=== PATIENT | male | born 2000 | race Caucasian/White ===

== ENCOUNTER 2023-09-30 08:45 | Emergency (ER) | payer SELFPAY ==
--- OUTSIDE RECORDS SUMMARY | 2023-09-30 08:48 | XMS REPORT | Continuity of Care Document ---
:2000 Author Organization [facility] Address [address] [place] [address] Care Team Providers Name Role Phone Asked, No Pcp Primary Care Physician Unavailable Jose MARQUEZ, Lorenzo Jung Attending Clinician Payers Payer Name Policy Type Policy Number Effective Date Expiration Date S ource Problems This patient has no known problems. Allergies, Adverse Reactions, Alerts This patient has no known allergies or adverse reactions. Social History Social Habit Start Date Stop Date Quantity Comments Source Sexual orientation [facility] History of Social 2022-11-03 2022-11-03 [facility] function 00:00:00 00:00:00 Sex Assigned At [address] [facility] 00:00:00 00:00:00 Smoking Status Start Date Stop Date Source Tobacco smoking consumption unknown [facility] Medications This patient has no known medications. Vital Signs Vital Name Observation Time Observation Value Comments Source Systolic blood 2022-11-03 16:53:02 138 mm[Hg] [facility] pressure Diastolic blood 2022-11-03 16:53:02 82 mm[Hg] [facility] pressure Heart rate 2022-11-03 16:53:02 72 /min [facility] Body temperature 2022-11-03 16:53:02 36.56 Nyla [facility] Respiratory rate 2022-11-03 16:53:02 18 /min [facility] Oxygen saturation in 2022-11-03 16:53:02 99 /min [facility] Arterial blood by Pulse oximetry Body height 2022-11-03 16:53:00 182.9 cm [facility] Body weight 2022-11-03 16:53:00 88.451 kg [facility] BMI 2022-11-03 16:53:00 26.45 kg/m2 [facility] Procedures Procedure Date / Time Performed Performing Clinician [facility] e GROUP A STREP, RAPID 2022-11-03 17:05:00 [facility] ANTIGEN INFLUENZA ANTIGEN 2022-11-03 17:05:00 [facility] RESPIRATORY PATHOGEN 2022-11-03 17:05:00 [facility] PANEL WITH COVID-19 RT-PCR STREP SCREEN CULTURE 2022-11-03 17:05:00 [facility] Encounters Start End Encounter Admission Attending Care Care Encounter Source Date/Time Date/Time Type Type Clinicians Facility Department ID 2022-11-03 2022-11-03 Emergency Garcia, [id number] [facility] 10:55:00 11:54:00 Lorenzo Jung [id number] 3.430.2.7 Hospit a .[id number] l .8 2022-11-03 2022-11-03 Emergency GARCIA, [facility] [id number] [address] [place] 00:00:00 00:00:[address] 2022-11-03 2022-11-03 Travel [id number] [facility] 00:00:00 00:00:[id number] 3.430.2.7 0.2.7.3.698 spita .[id number] 084.8 l .8 Results Test Description Test Time Test Comments Results Result Comments Source Strep screen culture 2022-11-06 21:01:00 Test Item Value Reference Range Interpretation Comme nts Strep screen culture No beta hemolytic Sp ecimen InformationSpecimen isolate (test code = Streptococci isolated Source: ThroatSpecimen Site: Not 547-0) otherwise speci ed [facility]
--- NOTE | 2023-09-30 09:08 | ER ---
Nurse's Notes [facility] Name: Alban Warren Age: 22 yrs Sex: Male : 2000 Arrival Date: 09/30/2023 Time: 08:45 Bed 6 Private MD: Diagnosis: Cellulitis of left toe;Ingrown toenail Presentation: 09/30 09:03 Chief complaint: Patient states: Had pedicure approx 1 month ago, states, " The lady ph dug into the sides of my nail and it hurt pretty bad when she did it. It has been bothering me since." L great toe reddened and swollen, purulent drainage from around nail bed, nail in place. Pt reports that he has taken amoxicillin and tried epsom salt soaks w/ no releif. Coronavirus screen: Vaccine status: Patient reports being unvaccinated. Ebola Screen: No symptoms or risks identified at this time. Initial Sepsis Screen: Does the patient meet any 2 criteria? No. Patient's initial sepsis screen is negative. Does the patient have a suspected source of infection? Yes:. Risk Assessment: Do you want to hurt yourself or someone else? Patient reports no desire to harm self or others. Onset of symptoms was September 30, 2023. 09:03 Method Of Arrival: Ambulatory ph 09:03 Acuity: TAISHA 4 ph Triage Assessment: 09:05 General: Appears in no apparent distress. comfortable, Behavior is calm, cooperative, ph appropriate for age, Denies fever. Pain: Complains of pain in Left first toenail. Neuro: Level of Consciousness is awake, alert, obeys commands, Oriented to person, place, time, situation. Cardiovascular: Capillary refill < 3 seconds in bilateral fingers. Respiratory: Airway is patent Respiratory effort is even, unlabored. Musculoskeletal: Range of motion: intact in all extremities. Injury Description: redness and swelling to L great toe, purulent drainage around nail bed. Historical: - Allergies: :05 No Known Allergies; ph - Home Meds: 09:05 None [Active]; ph - PMHx: 09: None; ph - PSHx: 09:05 None; ph - Immunization history:: Adult Immunizations unknown. - Social history:: Smoking status: Patient denies any tobacco usage or history of. Screenin:07 [facility] ED Fall Risk Assessment (Adult) History of falling in the last 3 months, ph including since admission No falls in past 3 months (0 pts) Score/Fall Risk Level 0 - 2 = Low Risk Oriented to surroundings, Maintained a safe environment. Abuse screen: Denies threats or abuse. Denies injuries from another. Nutritional screening: No deficits noted. Tuberculosis screening: No symptoms or risk factors identified. Vital Signs: 09:03 BP 138 / 84; Pulse 76; Resp 18; Temp 97.7; Pulse Ox 99% on R/A; Weight 90.72 kg; Height ph 6 ft. 0 in. ; 09:03 Body Mass Index 27.12 (90.72 kg, 182.88 cm) ph ED Course: 08:47 Patient arrived in ED. [facility] 08:50 [facility] Lowe FNP [facility] 08:50 Rober Stewart MD is Attending Physician. [facility] 09:03 Leatha Magana RN is Primary Nurse. ph 09:05 Triage completed. ph 09:07 Arm band placed on Patient placed in an exam room, on a stretcher. ph 09:07 Patient has correct armband on for positive identification. Bed in low position. Call ph light in reach. Side rails up X 1. 09:07 No provider procedures requiring assistance completed. Patient did not have IV access ph during this emergency room visit. Administered Medications: No medications were administered Medication: 09:07 VIS not applicable for this client. ph Outcome: 09:08 Discharge ordered by . [facility] 09:24 Discharged to home ambulatory, with significant other, 09:24 Condition: good 09:24 Discharge instructions given to patient, significant other, Instructed on discharge instructions, follow up and referral plans. medication usage, Demonstrated understanding of instructions, follow-up care, medications, Prescriptions given X 3, 09:24 Patient left the ED. ph Signatures: Leatha Magana, JACQUELINE RN Jasmyn Botello [facility] Silvina Lowe FNP FNP [facility]
--- NOTE | 2023-09-30 09:08 | EDPHYS ---
Physician Documentation [facility] Name: Alban Warren Age: 22 yrs Sex: Male : 2000 Arrival Date: 09/30/2023 Time: 08:45 Bed 6 Private MD: ED Physician Rober Stewart HPI: 09/30 09:03 This 22 yrs old Male presents to ER via Ambulatory with complaints of Toe Infection. jh7 09:03 Onset: The symptoms/episode began/occurred 1 month(s) ago. Associated signs and jh7 symptoms: Pertinent negatives: fever. Patient had a pedicure 1 month ago and developed redness, drainage, and swelling around the left great toe. Denies any fever. States that he is doing warm Epsom salt soaks at home with no relief. No medical problems.. Historical: - Allergies: 09:05 No Known Allergies; ph - Home Meds: 09:05 None [Active]; ph - PMHx: 09:05 None; ph - PSHx: 09:05 None; ph - Immunization history:: Adult Immunizations unknown. - Social history:: Smoking status: Patient denies any tobacco usage or history of. ROS: 09:03 Constitutional: Negative for fever, chills, and weight loss, Eyes: Negative for injury, jh7 pain, redness, and discharge, Neck: Negative for injury, pain, and swelling, Cardiovascular: Negative for chest pain, palpitations, and edema, Respiratory: Negative for shortness of breath, cough, wheezing, and pleuritic chest pain, MS/Extremity: Negative for injury and deformity, Neuro: Negative for headache, weakness, numbness, tingling, and seizure, 09:03 Skin: Positive for cellulitis, of the Left great toe, 09:03 All other systems are negative, Exam: 09:03 Constitutional: This is a well developed, well nourished patient who is awake, alert, jh7 and in no acute distress. Head/Face: Normocephalic, atraumatic. Eyes: Pupils equal round and reactive to light, extra-ocular motions intact. Lids and lashes normal. Conjunctiva and sclera are non-icteric and not injected. Cornea within normal limits. Periorbital areas with no swelling, redness, or edema. Neck: Trachea midline, no thyromegaly or masses palpated, and no cervical lymphadenopathy. Supple, full range of motion without nuchal rigidity, or vertebral point tenderness. No Meningismus. Cardiovascular: Regular rate and rhythm with a normal S1 and S2. No gallops, murmurs, or rubs. Normal PMI, no JVD. No pulse deficits. Respiratory: Lungs have equal breath sounds bilaterally, clear to auscultation and percussion. No rales, rhonchi or wheezes noted. No increased work of breathing, no retractions or nasal flaring. Back: No spinal tenderness. No costovertebral tenderness. Full range of motion. MS/ Extremity: Pulses equal, no cyanosis. Neurovascular intact. Full, normal range of motion. Neuro: Awake and alert, GCS 15, oriented to person, place, time, and situation. Motor strength 5/5 in all extremities. Sensory grossly intact. Normal gait. 09:03 Skin: cellulitis, that is mild, on the Left first toenail, Mild swelling, cellulitis, and purulent drainage surrounding the entire left great toenail., Vital Signs: 09:03 BP 138 / 84; Pulse 76; Resp 18; Temp 97.7; Pulse Ox 99% on R/A; Weight 90.72 kg; Height ph 6 ft. 0 in. ; 09:03 Body Mass Index 27.12 (90.72 kg, 182.88 cm) ph [facility]: 08:50 Patient medically screened. [facility] 08:52 Differential diagnosis: Cellulitis, ingrown toenail. Data reviewed: vital signs, nurses [facility] notes. Counseling: I had a detailed discussion with the patient and/or guardian regarding the historical points, exam findings, and any diagnostic results supporting the discharge/admit diagnosis, the need for outpatient follow up, a airplane pilot photogrammetry, to return to the emergency department if symptoms worsen or persist or if there are any questions or concerns that arise at home. Special discussion: Based on the history and exam findings, there is no indication for further emergent testing or inpatient evaluation. I discussed with the patient/guardian the need to see the senior engineering specialist for further evaluation of the symptoms. For likely removal of the entire toenail. Administered Medications: No medications were administered Disposition: 11:31 Co-signature as Attending Physician, Rober Stewart MD I reviewed the patient's care rn provided by the Advanced Practice Provider and agree with the diagnosis and treatment plan. Disposition Summary: 09/30/23 09:08 Discharge Ordered Notes: Location: Home [facility] Problem: new jh Symptoms: are unchanged [facility] Condition: Stable jh7 Diagnosis - Cellulitis of left toe jh7 - Ingrown toenail jh7 Followup: [facility] - With: Private Physician - When: 2 - 3 days - Reason: Recheck today's complaints Discharge Instructions: - Discharge Summary Sheet ph - Cellulitis, Adult jh7 - Ingrown Toenail jh7 - Fingernail or Toenail Removal, Adult 7 Forms: - Work release form ph - Family Work Release ph - Medication Reconciliation Form [facility] - Thank You Letter [facility] - Antibiotic Education [facility] - Patient Portal Instructions [facility] - Leadership Thank You Letter [facility] Prescriptions: - mupirocin 2 % Topical ointment - apply 1 application TOPICAL route 3 times per day for 7 days; 22 gram; Refills: [facility] 0, Product Selection Permitted - Cephalexin 500 mg Oral capsule - take 1 capsule ORAL route every 12 hours for 7 days; 14 capsule; Refills: 0, [facility] Product Selection Permitted - Bactrim DS 800-160 mg Oral Tablet - take 1 tablet ORAL route every 12 hours for 7 days; 14 tablet; Refills: 0, 7 Product Selection Permitted Signatures: Rober Stewart MD MD rn Hall, Patricia, RN RN ph Hadash, Jennifer, FNP ASSOCIATE PROFESSOR OF CHEMISTRY [facility] Corrections: (The following items were deleted from the chart) 09:22 09:03 This 22 yrs old Male presents to ER via Ambulatory with complaints of Toe jh7 Infection. [facility]
[2023-09-30 09:29] VITALS: BP 138/84; TEMP 97.7; O2SAT 99
== END 2023-09-30 09:24 | disposition home or self-care (01) ==
LOC: ER 08:45
DX: L03.032 Cellulitis of left toe (principal); L60.0 Ingrowing nail
CPT/HCPCS: 99283

== ENCOUNTER → 2023-12-20 | Emergency (ER) | payer SELFPAY ==
[~2023-12-20] MED LIST: ALBUTEROL 2.5 MG/3 ML NEB SOL ONE; CEFTRIAXONE 1000 MG/VIAL ONE; CODEINE 30MG/APAP 300MG TAB ONE; IPRATROPIUM BROM 0.5MG/2.5ML ONE; KETOROLAC 30 MG/ML INJ ONE; NA CHLORIDE 0.9% 1,000 ML ONE; ONDANSETRON 4 MG/2 ML VIAL ONE; PROMETHAZINE 25 MG TABLET ONE; predniSONE 20 MG TAB ONE
[2023-12-20 02:40] LABS: Absolute Lymphocytes (CBC) 1.7 K/uL (0.7-4.9); Hematocrit 44.9 % (39.6-49.0); Lymphocytes % 25.3 % (15.3-44.8); MCV 87.6 fL (80-100); MPV 8.9 fL (7.6-11.3); Platelets 222 thou/uL (152-406); RBC Red Blood Cell Count 5.13 M/uL (4.33-5.43)
[2023-12-20 02:52] LABS: Albumin 3.9 g/dL (3.4-5.0); Bilirubin Total 0.9 mg/dL (0.2-1.0); Potassium 3.9 mEq/L (3.5-5.1); Protein, Total 7.4 g/dL (6.4-8.2)
--- NOTE | 2023-12-20 03:36 | EDPHYS ---
Physician Documentation [facility] [place] [place] Name: Alban Warren Age: 23 yrs Sex: Male : 2000 Arrival Date: 12/20/2023 Time: 01:37 Bed 11 Private MD: ED Physician Main Oseguera HPI: 12/20 01:47 This 23 yrs old Male presents to ER via Unassigned with complaints of Cough, sp4 Sinus Congestion, Headache, Wheezing > 1 Year, Shortness Of Breath. 03:29 3-year-old male presents with 1 week of wheezing, subjective fever, fatigue, cough, sp4 congestion, cough productive of yellow sputum. Patient took Z-Piero at home. This did not bring significant relief. Patient also has taken mucus DM. . Historical: - Allergies: 01:58 No Known Allergies; lg3 - Home Meds: 01:58 None [Active]; lg3 - PMHx: 01:58 Asthma; lg3 - PSHx: 01:58 None; lg3 - Immunization history:: Adult Immunizations up to date, Client reports having NOT received the Covid vaccine. Flu vaccine is not up to date. - Social history:: Smoking status: Patient reports the use of cigarette tobacco products, denies chronic smoking, but will smoke occasionally, Patient uses alcohol, occasionally. street drugs, marijuana. - Family history:: not pertinent. ROS: 03:31 Constitutional: Positive for subjective fever, fatigue, cough, congestion, wheezing, sp4 productive cough 03:31 All other systems are negative, Exam: 03:31 Constitutional: This is a well developed, well nourished patient who is awake, alert, sp4 and in no acute distress. Head/Face: Normocephalic, atraumatic. Eyes: Pupils equal round and reactive to light, extra-ocular motions intact. Lids and lashes normal. Conjunctiva and sclera are not injected. Cornea within normal limits. Periorbital areas with no swelling, redness, or edema. ENT: Nares patent. No nasal discharge, no septal abnormalities noted. Tympanic membranes are normal and external auditory canals are clear. Oropharynx with no redness, swelling, or masses, exudates, or evidence of obstruction, uvula midline. Mucous membranes moist. Neck: Trachea midline, no thyromegaly or masses palpated, and no cervical lymphadenopathy. Supple, full range of motion without nuchal rigidity, or vertebral point tenderness. Chest/axilla: Normal chest wall appearance and motion. Nontender with no deformity. No lesions are appreciated. Cardiovascular: Regular rate and rhythm with a normal S1 and S2. No gallops, murmurs, or rubs. Normal PMI, no JVD. No pulse deficits. Respiratory: Lungs have equal breath sounds bilaterally, clear to auscultation and percussion. No rales, rhonchi or wheezes noted. No increased work of breathing, no retractions or nasal flaring. Abdomen/GI: Soft, non-tender, with normal bowel sounds. No distension or tympany. No guarding or rebound. No evidence of tenderness throughout. Back: No spinal tenderness. No costovertebral tenderness. There is sacral decubitus ulcer that is covered by the wound VAC. Skin: Warm, dry with normal turgor. Normal color with no rashes, no lesions, and no evidence of cellulitis. MS/ Extremity: Pulses equal, no cyanosis. Neurovascular intact. Full, normal range of motion. Neuro: Awake and alert, GCS 15, oriented to person, place, time, and situation. Cranial nerves II-XII grossly intact. Motor strength 5/5 in all extremities. Sensory grossly intact. Psych: Awake, alert, with orientation to person, place and time. Behavior, mood, and affect are within normal limits Vital Signs: 01:57 BP 126 / 76; Pulse 82; Resp 17 S; Temp 98.2(O); Pulse Ox 99% on R/A; Weight 95.25 kg lg3 (R); Height 6 ft. 0 in. (R); 03:00 BP 120 / 74; Pulse 85; Resp 16; Temp 98.3; Pulse Ox 100% on R/A; Pain 2/10; pf1 01:57 Body Mass Index 28.48 (95.25 kg, 182.88 cm) lg3 03:00 Pain Scale: Adult pf1 MDM: 01:55 Patient medically screened. sp4 03:31 Differential Diagnosis: Bronchitis Influenza Upper Respiratory Infection Sinusitis sp4 Pharyngitis Otitis Media Allergic Rhinitis. Data reviewed: vital signs, nurses notes, old medical records, lab test result(s), CBC, electrolytes, hepatic panel, radiologic studies, plain films. Consideration of Admission/Observation Escalation of care including admission/observation considered. ED course: Patient reports production of yellow and brown mucus. Will go ahead and cover with Rocephin IV also cefdinir for the next 10 days.. Associated prescription will be albuterol inhaler 4 hours as needed, Phenergan p.o. every 6 hours as needed, dextromethorphan every 6 hours as needed, Phenergan every 6 hours as needed. . 12/20 01:48 Order name: COVID-19 SARS RT PCR; Complete Time: 03:4 12/20 01:48 Order name: Influenza Screen (a \T\ B); Complete Time: 03:4 12/20 01:54 Order name: CBC with Diff; Complete Time: 03:4 12/20 01:54 Order name: CMP; Complete Time: 02:55 4 12/20 01:54 Order name: Chest Single View XRAY 4 12/20 01:54 Order name: IV Saline Lock; Complete Time: 02:4 12/20 01:54 Order name: Labs collected and sent; Complete Time: 02: Administered Medications: 02:25 Drug: NS 0.9% IV 1000 ml IV at 1 bolus Per protocol; 1000 mL bolus Route: IV; Rate: 1 pf1 bolus; Site: right antecubital; 03:39 Follow up: Response: No adverse reaction; Marked relief of symptoms; IV Status: pf1 Completed infusion; IV Intake: 1000ml 02:25 Drug: Ondansetron IVP 4 mg IVP once; over 2 minutes Route: IVP; Site: right antecubital;pf1 03:25 Follow up: Response: No adverse reaction; Marked relief of symptoms pf1 02:25 Drug: predniSONE PO 60 mg PO once Route: PO; pf1 03:25 Follow up: Response: No adverse reaction; Marked relief of symptoms pf1 02:25 Drug: Ketorolac IVP 30 mg IVP once Route: IVP; Site: right antecubital; pf1 03:25 Follow up: Response: No adverse reaction; Marked relief of symptoms; Pain is decreased pf1 02:26 Drug: Promethazine PO 25 mg PO once Route: PO; pf1 03:20 Follow up: Response: No adverse reaction; Marked relief of symptoms; Nausea is decreasedpf1 02:26 Drug: Acetaminophen-Codeine PO (300 mg-30 mg) 2 tabs PO once; RASS on ADMIN: Combtv4, pf1 Very Agttd3, Agttd2, Rstlss1, AlertClm0, Drwsy-1, Lt Sdtn-2, Mod Sdtn-3, Dp Sdtn-4, UnArsble-5 Route: PO; 03:20 Follow up: Response: No adverse reaction; Marked relief of symptoms; Pain is decreased; pf1 RASS: Alert and Calm (0) 02:35 Drug: DuoNeb Nebulize (3:1) (2.5 mg - 0.5 mg) 3 ml Nebulizer once Route: Nebulizer; pf1 03:30 Follow up: Response: No adverse reaction; Marked relief of symptoms pf1 03:36 CANCELLED (Duplicate Order): Rocephin - rocephin (ceftriaxone)1 grams IVPB once over 30 pf1 mins; (mix in 50 mL NS) 03:38 Drug: Rocephin IV 1 grams IV at bolus once; Given slow IV push per pharmacy pf1 instructions Route: IV; Rate: bolus; Site: right antecubital; 03:40 Follow up: IV Status: Completed infusion; IV Intake: 10ml pf1 03:50 Follow up: Response: No adverse reaction; Marked relief of symptoms pf1 Disposition Summary: 12/20/23 03:35 Discharge Ordered Problem: new sp4 Symptoms: have improved sp4 Condition: Stable sp4 Diagnosis - Acute bronchitis, unspecified sp4 - Acute bronchitis bacterial, acute pharyngitis, fatigue sp4 Followup: sp4 - With: Waldemar Suarez DO - When: 7 - 10 days - Reason: Recheck today's complaints Discharge Instructions: - Discharge Summary Sheet sp4 - Acute Bronchitis, Adult sp4 Forms: - Patient Portal Instructions sp4 Prescriptions: - Ventolin HFA 90 mcg/actuation Inhalation HFA Aerosol Inhaler - inhale 2 puff INHALATION route every 4 hours PRN dyspnea, Dispense 1 Inhaler sp4 with Spacer; 1 unit; Refills: 0, Product Selection Permitted - cefdinir 300 mg Oral capsule - take 1 capsule ORAL route every 12 hours for 10 days; 20 capsule; Refills: 0, sp4 Product Selection Permitted - dextromethorphan-guaifenesin 20-400 mg Oral tablet - take 1 tablet ORAL route every 6 hours PRN cough; 60 tablet; Refills: 0, sp4 Product Selection Permitted - Ibuprofen 800 mg Oral Tablet - take 1 tablet ORAL route every 8 hours As needed take with food; 30 tablet; sp4 Refills: 0, Product Selection Permitted - promethazine 25 mg Oral tablet - take 1 tablet ORAL route every 6 hours As needed; 30 tablet; Refills: 0, sp4 Product Selection Permitted Signatures: Dispatcher [employer] Preeti Buenrostro RN RN lg3 Erlinda Otto RN RN pf1 Main Oseguera MD MD sp4 Corrections: (The following items were deleted from the chart) 03:36 03:28 Rocephin - Rocephin (cefTRIAXone) IVPB 1 grams IVPB once over 30 mins; (mix in 50 pf1 mL NS) ordered. sp4
--- NOTE | 2023-12-20 03:36 | ER ---
Nurse's Notes [facility] Name: Alban Warren Age: 23 yrs Sex: Male : 2000 Arrival Date: 12/20/2023 Time: 01:37 Bed 11 Private MD: Diagnosis: Acute bronchitis, unspecified;Acute bronchitis bacterial, acute pharyngitis, fatigue Presentation: 12/20 01:57 Chief complaint: Patient states: wheezing, congestion, cough, SOB, headache, dizzy X1 lg3 week. Coronavirus screen: Client denies travel out of the [place] in the last 14 days. Client presents with at least one sign or symptom that may indicate coronavirus-19. Standard/surgical mask placed on the client. Ebola Screen: No symptoms or risks identified at this time. Initial Sepsis Screen: Does the patient meet any 2 criteria? No. Patient's initial sepsis screen is negative. Does the patient have a suspected source of infection? No. Patient's initial sepsis screen is negative. Risk Assessment: Do you want to hurt yourself or someone else? Patient reports no desire to harm self or others. Onset of symptoms is unknown. 01:57 Method Of Arrival: Ambulatory lg3 01:57 Acuity: TAISHA 4 lg3 Triage Assessment: 01:58 Headache History: Denies prior headaches. General: Appears in no apparent distress. lg3 uncomfortable, Behavior is calm, cooperative. Pain: Complains of pain in head Pain does not radiate. Pain currently is 6 out of 10 on a pain scale. Pain began 2-3 days ago. Also complains of photophobia. EENT: No deficits noted. No signs and/or symptoms were reported regarding the EENT system. Reports nasal congestion nasal discharge. Neuro: No deficits noted. Champion Agitation-Sedation Scale (RASS): 0 - Alert and Calm Level of Consciousness is awake, alert, obeys commands, Oriented to person, place, time, situation, Reports dizziness, headache. Cardiovascular: No deficits noted. Capillary refill < 3 seconds Clubbing of nail beds is absent JVD is absent Patient's skin is warm and dry. Respiratory: No deficits noted. Reports shortness of breath cough that is Airway is patent Respiratory effort is even, unlabored, Respiratory pattern is regular, symmetrical. GI: No deficits noted. No signs and/or symptoms were reported involving the gastrointestinal system. Abdomen is round non-distended. : No deficits noted. No signs and/or symptoms were reported regarding the genitourinary system. Derm: No deficits noted. No signs and/or symptoms reported regarding the dermatologic system. Skin is intact, is healthy with good turgor, Skin is dry, Skin is normal, Skin temperature is warm. Musculoskeletal: No deficits noted. Circulation, motion, and sensation intact. Range of motion: intact in all extremities. Historical: - Allergies: :58 No Known Allergies; lg3 - Home Meds: :58 None [Active]; lg3 - PMHx: :58 Asthma; lg3 - PSHx: :58 None; lg3 - Immunization history:: Adult Immunizations up to date, Client reports having NOT received the Covid vaccine. Flu vaccine is not up to date. - Social history:: Smoking status: Patient reports the use of cigarette tobacco products, denies chronic smoking, but will smoke occasionally, Patient uses alcohol, occasionally. street drugs, marijuana. - Family history:: not pertinent. Screenin:02 [facility] ED Fall Risk Assessment (Adult) History of falling in the last 3 months, lg3 including since admission No falls in past 3 months (0 pts). Abuse screen: Denies threats or abuse. Denies injuries from another. Nutritional screening: No deficits noted. Tuberculosis screening: No symptoms or risk factors identified. Assessment: 02:01 General: see triage assessment. lg3 03:00 Reassessment: Patient appears in no apparent distress at this time. Patient and/or pf1 family updated on plan of care and expected duration. Pain level reassessed. Patient is alert, oriented x 3, equal unlabored respirations, skin warm/dry/pink. Patient states feeling better. Patient states symptoms have improved. Vital Signs: 01:57 BP 126 / 76; Pulse 82; Resp 17 S; Temp 98.2(O); Pulse Ox 99% on R/A; Weight 95.25 kg lg3 (R); Height 6 ft. 0 in. (R); 03:00 BP 120 / 74; Pulse 85; Resp 16; Temp 98.3; Pulse Ox 100% on R/A; Pain 2/10; pf1 01:57 Body Mass Index 28.48 (95.25 kg, 182.88 cm) lg3 03:00 Pain Scale: Adult pf1 ED Course: 01:40 Patient arrived in ED. jj6 01:47 Main Oseguera MD is Attending Physician. sp4 01:58 Triage completed. lg3 01:58 Arm band placed on left wrist. lg3 02:02 Patient has correct armband on for positive identification. lg3 02:10 Inserted saline lock: 22 gauge in right antecubital area, using aseptic technique. pf1 Blood collected. 02:23 CBC with Diff Sent. pf1 02:23 CMP Sent. pf1 02:23 Influenza Screen (a \T\ B) Sent. pf1 02:23 COVID-19 SARS RT PCR Sent. pf1 02:24 No provider procedures requiring assistance completed. pf1 02:45 Chest Single View XRAY In Process Unspecified. EDMS 03:34 Waldemar Suarez DO is Referral Physician. sp4 03:45 IV discontinued, intact, bleeding controlled, No redness/swelling at site. Pressure pf1 dressing applied. 03:50 Provided Education on: prescriptions and follow up. pf1 Administered Medications: 02:25 Drug: NS 0.9% IV 1000 ml IV at 1 bolus Per protocol; 1000 mL bolus Route: IV; Rate: 1 pf1 bolus; Site: right antecubital; 03:39 Follow up: Response: No adverse reaction; Marked relief of symptoms; IV Status: pf1 Completed infusion; IV Intake: 1000ml 02:25 Drug: Ondansetron IVP 4 mg IVP once; over 2 minutes Route: IVP; Site: right antecubital;pf1 03:25 Follow up: Response: No adverse reaction; Marked relief of symptoms pf1 02:25 Drug: predniSONE PO 60 mg PO once Route: PO; pf1 03:25 Follow up: Response: No adverse reaction; Marked relief of symptoms pf1 02:25 Drug: Ketorolac IVP 30 mg IVP once Route: IVP; Site: right antecubital; pf1 03:25 Follow up: Response: No adverse reaction; Marked relief of symptoms; Pain is decreased pf1 02:26 Drug: Promethazine PO 25 mg PO once Route: PO; pf1 03:20 Follow up: Response: No adverse reaction; Marked relief of symptoms; Nausea is decreasedpf1 02:26 Drug: Acetaminophen-Codeine PO (300 mg-30 mg) 2 tabs PO once; RASS on ADMIN: Combtv4, pf1 Very Agttd3, Agttd2, Rstlss1, AlertClm0, Drwsy-1, Lt Sdtn-2, Mod Sdtn-3, Dp Sdtn-4, UnArsble-5 Route: PO; 03:20 Follow up: Response: No adverse reaction; Marked relief of symptoms; Pain is decreased; pf1 RASS: Alert and Calm (0) 02:35 Drug: DuoNeb Nebulize (3:1) (2.5 mg - 0.5 mg) 3 ml Nebulizer once Route: Nebulizer; pf1 03:30 Follow up: Response: No adverse reaction; Marked relief of symptoms pf1 03:36 CANCELLED (Duplicate Order): Rocephin - rocephin (ceftriaxone)1 grams IVPB once over 30 pf1 mins; (mix in 50 mL NS) 03:38 Drug: Rocephin IV 1 grams IV at bolus once; Given slow IV push per pharmacy pf1 instructions Route: IV; Rate: bolus; Site: right antecubital; 03:40 Follow up: IV Status: Completed infusion; IV Intake: 10ml pf1 03:50 Follow up: Response: No adverse reaction; Marked relief of symptoms pf1 Medication: 03:50 VIS not applicable for this client. pf1 Intake: 03:39 IV: 1000ml; Total: 1000ml. pf1 03:40 IV: 10ml; Total: 1010ml. pf1 Outcome: 03:35 Discharge ordered by . sp4 03:50 Discharged to home ambulatory, with family, pf1 03:50 Condition: improved 03:50 Discharge instructions given to patient, family, Instructed on discharge instructions, pf1 follow up and referral plans. Demonstrated understanding of instructions, follow-up care, medications, Prescriptions given X 5 04:06 Patient left the ED. pf1 Signatures: Dispatcher [employer] EDMS Preeti Miranda RN RN lg3 Silvina Pérez6 Erlinda Otto RN RN pf1 Main Oseguera MD MD sp4
[2023-12-20 08:16] VITALS: BP 120/74; TEMP 98.3; O2SAT 100
--- NOTE | 2023-12-20 09:44 | RAD REPORT ---
EXAM DESCRIPTION: RAD - Chest Single View - 12/20/2023 2:44 am CLINICAL HISTORY: CONGESTION TECHNIQUE: Frontal view of the chest. COMPARISON: No relevant prior studies available. FINDINGS: Lungs: Unremarkable. No consolidation. Pleural space: Unremarkable. No pneumothorax. Heart: Unremarkable. No cardiomegaly. Mediastinum: Unremarkable. Normal mediastinal contour. Bones/joints: Unremarkable. No acute fracture. IMPRESSION: No acute disease. Electronically signed by: Austyn Ramirez MD 12/20/2023 03:54 AM CAB SUPERVISOR Due to temporary technical issues with the PACS/Fluency reporting system, reports are being signed by the in house radiologists without review as a courtesy to insure prompt reporting. The interpreting radiologist is fully responsible for the content of the report.
== END ==
LOC: ER 01:37
DX: J20.9 Acute bronchitis, unspecified (principal); R53.83 Other fatigue; J02.9 Acute pharyngitis, unspecified; Z11.52 Encounter for screening for COVID-19
CPT/HCPCS: 36415; 71045; 80053; 85025; 87635; 87804; 94640; 96361; 96374; 96375; 99285; J0696; J2405; J7030; J7512; J7613; J7644; Q0169

== ENCOUNTER 2024-11-18 18:34 | Emergency (ER) | payer BC ==
[2024-11-18] MEDS ORDERED: NA CHLORIDE 0.9% 1,000 ML ONE (19:31)
[2024-11-18] MEDS ORDERED: ALBUTEROL 2.5 MG/3 ML NEB SOL ONE (19:31)
[2024-11-18] MEDS ORDERED: KETOROLAC 30 MG/ML INJ ONE (19:31)
[2024-11-18] MEDS ORDERED: IPRATROPIUM BROM 0.5MG/2.5ML ONE (19:31)
[2024-11-18 19:55] LABS: Absolute Eosinophils 0.2 K/uL (0-0.5); Absolute Lymphocytes (CBC) 2.7 K/uL (0.7-4.9); Absolute Monocytes 0.6 K/uL (0.1-1.3); Absolute Neutrophil 5.5 K/uL (1.8-8.0); Basophils % 0.4 % (0-1.3); Eosinophils % 2.7 % (0-4.4); Hematocrit 40.4 % (39.6-49.0); Hemoglobin 13.3 g/dL (13.6-17.9); Lymphocytes % 29.5 % (15.3-44.8); MCH 29.6 pg (27.0-35.0); MCV 89.6 fL (80-100); MPV 9.8 fL (7.6-11.3); Monocytes % 6.4 % (3.3-12.3); Platelets 194 thou/uL (152-406); RBC Red Blood Cell Count 4.51 M/uL (4.33-5.43); Red Cell Distribution Width 12.3 % (12.1-15.2)
[2024-11-18 20:14] LABS: ALT/SGPT 25 U/L (16-61); AST/SGOT 17 U/L (15-37); Albumin 3.6 g/dL (3.4-5.0); Albumin/Globulin Ratio 1.2 (1.1-1.8); Alkaline Phosphatase 81 U/L (45-117); Anion Gap 9.3 mEq/L (5.0-15.0); BUN Blood Urea Nitrogen 16 mg/dL (7-18); Bicarbonate 24 mEq/L (21-32); Bilirubin Direct < 0.2 mg/dL (0-0.2); Bilirubin Indirect, Calculated 0.3 mg/dL (0.2-0.8); Bilirubin Total 0.5 mg/dL (0.2-1.0); Globulin 2.9 g/dL (2.3-3.5); Glomerular Filtration Rate 129 ml/min (=/>90); Glucose Level 99 mg/dL (74-106); Potassium 3.3 mEq/L (3.5-5.1); Protein, Total 6.5 g/dL (6.4-8.2); Sodium Level 142 mEq/L (136-145); Troponin High Sensitivity 3.8 pg/mL (<58.9)
[2024-11-18 20:22] LABS: SARS-CoV-2 Antigen CONTROL BLUE LINE VIS/BG OK; SARS-CoV-2 Antigen Rapid Res Negative (Negative)
--- NOTE | 2024-11-18 21:19 | ER ---
Nurse's Notes [facility] Name: Alban Warren Age: 23 yrs Sex: Male : 2000 Arrival Date: 11/18/2024 Time: 18:34 Bed 15 Private MD: Diagnosis: Pleurisy Presentation: 11/18 18:53 Chief complaint: Patient states: cough x1 week, this morning started to have trouble tm6 breathing and chest pressure, worse on inspiration. Coronavirus screen: Client denies travel out of the [place] in the last 14 days. Ebola Screen: Patient negative for fever greater than or equal to 101.5 degrees Fahrenheit, and additional compatible Ebola Virus Disease symptoms Patient denies exposure to infectious person. Patient denies travel to an Ebola-affected area in the 21 days before illness onset. No symptoms or risks identified at this time. Initial Sepsis Screen: Does the patient meet any 2 criteria? No. Patient's initial sepsis screen is negative. Does the patient have a suspected source of infection? No. Patient's initial sepsis screen is negative. Risk Assessment: Do you want to hurt yourself or someone else? Patient reports no desire to harm self or others. Onset of symptoms was November 18, 2024. 18:53 Method Of Arrival: Ambulatory tm6 18:53 Acuity: TAISHA 3 tm6 Triage Assessment: 18:55 General: Appears in no apparent distress. Behavior is calm, cooperative. Pain: tm6 Complains of pain in chest Pain currently is 4 out of 10 on a pain scale. EENT: No signs and/or symptoms were reported regarding the EENT system. Neuro: Level of Consciousness is awake, alert, obeys commands, Oriented to person, place, time, situation. Cardiovascular: Reports chest pain, shortness of breath. Respiratory: Reports shortness of breath Airway is patent Respiratory effort is even, unlabored, Respiratory pattern is regular, symmetrical. GI: No signs and/or symptoms were reported involving the gastrointestinal system. Abdomen is flat, non-distended. : No signs and/or symptoms were reported regarding the genitourinary system. Derm: No signs and/or symptoms reported regarding the dermatologic system. Musculoskeletal: No signs and/or symptoms reported regarding the musculoskeletal system. Historical: - Allergies: 18:54 No Known Allergies; tm6 - PMHx: 18:54 Asthma; tm6 - PSHx: 18:54 None; tm6 - Immunization history:: Flu vaccine is not up to date. - Infectious Disease History:: Denies. - Social history:: Smoking status: Reported history of juuling and/or vaping. Patient uses street drugs, marijuana. Screenin:30 [facility] ED Fall Risk Assessment (Adult) History of falling in the last 3 months, kj2 including since admission No falls in past 3 months (0 pts) Confusion or Disorientation No (0 pts) Intoxicated or Sedated No (0 pts) Impaired Gait No (0 pts) Mobility Assist Device Used No (0 pt) Altered Elimination No (0 pt) Score/Fall Risk Level 0 - 2 = Low Risk Maintained a safe environment, Hourly rounding (assess needs \T\ fall precautionary measures) done. Abuse screen: Denies threats or abuse. Denies injuries from another. Nutritional screening: No deficits noted. Tuberculosis screening: No symptoms or risk factors identified. Assessment: 20:30 Reassessment: JACQUELINE Abrams RECEIVED PATIENT AT THIS TIME FROM ELYSSA HO RN. kj2 20:30 General: Appears in no apparent distress. Behavior is calm, cooperative. Pain: kj2 Complains of pain in chest Pain does not radiate. Pain began gradually. Neuro: Level of Consciousness is awake, alert, obeys commands, Oriented to person, place, time, situation. Cardiovascular: Patient's skin is warm and dry. Respiratory: Airway is patent Respiratory effort is even, unlabored. GI: No signs and/or symptoms were reported involving the gastrointestinal system. : No signs and/or symptoms were reported regarding the genitourinary system. Vital Signs: 18:53 BP 110 / 73; Pulse 78; Resp 19; Temp 98.3(O); Pulse Ox 99% on R/A; MAP 85 mmHg; Weight tm6 99.79 kg; Height 6 ft. 0 in. ; Pain 4/10; 20:30 BP 118 / 62; Pulse 64; Resp 18; Pulse Ox 98% on R/A; kj2 18:53 Body Mass Index 29.84 (99.79 kg, 182.88 cm) tm6 18:53 Pain Scale: Adult 6 ED Course: 18:36 Patient arrived in ED. im 18:46 Edmond Coleman PA is PHCP. cp 18:46 Edmond Hickey MD is Attending Physician. cp 18:54 Triage completed. tm6 18:54 Arm band placed on right wrist. tm6 19:27 Elyssa Ho, JACQUELINE is Primary Nurse. hb 19:49 SARS RAPID Sent. hb 19:49 Strep Sent. hb 19:49 Influenza Screen (a \T\ B) Sent. hb 19:50 Basic Metabolic Panel Sent. hb 19:50 CBC with Diff Sent. hb 19:50 LFT's Sent. hb 19:50 Magnesium Sent. hb 19:50 Troponin HS Sent. hb 20:30 Patient has correct armband on for positive identification. Bed in low position. Call kj2 light in reach. Adult w/ patient. Provided Education on: CALL LIGHT. 20:30 Client placed on continuous cardiac and pulse oximetry monitoring. NIBP monitoring kj2 applied. phototypesetting equipment monitor on. 20:30 No provider procedures requiring assistance completed. Patient maintains SpO2 kj2 saturation greater than 95% on room air. 21:18 XRAY Chest Pa And Lat (2 Views) In Process Unspecified. EDMS 21:50 IV discontinued, intact, bleeding controlled, No redness/swelling at site. Pressure kj2 dressing applied. Administered Medications: 19:49 Drug: NS 0.9% IV 1000 ml IV at 1000 ml once; to be given as a bolus over 60 minutes hb Route: IV; Rate: 1000 ml; Site: left forearm; 20:49 Follow up: Response: No adverse reaction kj2 21:24 Follow up: IV Status: Completed infusion; IV Intake: 1000ml kj2 19:49 Drug: Albuterol Inhalation 2.5 mg Inhalation once Route: Inhalation; hb 19:49 Drug: Ipratropium Inhalation Aerosol 0.5 mg Inhalation once Route: Inhalation; hb 21:24 Follow up: Response: No adverse reaction kj2 21:24 Follow up: Response: No adverse reaction kj2 19:49 Drug: Ketorolac IVP 15 mg IVP once Route: IVP; Site: right forearm; hb 21:24 Follow up: Response: No adverse reaction kj2 21:32 Drug: MethylPrednisoLONE IVP 125 mg IVP once Route: IVP; Site: right forearm; kj2 21:32 Follow up: Response: Medication administered at discharge. kj2 Medication: 20:51 VIS not applicable for this client. kj2 Intake: 21:24 IV: 1000ml; Total: 1000ml. kj2 Outcome: 21:18 Discharge ordered by MD. cp 21:50 Discharged to home ambulatory, kj2 21:50 Condition: stable 21:50 Discharge instructions given to patient, family, Instructed on discharge instructions, follow up and referral plans. medication usage, Demonstrated understanding of instructions, follow-up care, medications, 21:55 Patient left the ED. rv1 Signatures: Dispatcher [employer] EDMS Edmond Coleman PA PA cp Baxter, Heather, RN RN Radha Wood rv1 Yvonne Zaragoza Tawney RN RN tm6 Yessy Padilla, RN RN kj2
--- NOTE | 2024-11-18 21:19 | EDPHYS ---
Physician Documentation [facility] Name: Alban Warren Age: 23 yrs Sex: Male : 2000 Arrival Date: 11/18/2024 Time: 18:34 Bed 15 Private MD: ED Physician Edmond Hickey HPI: 11/18 18:50 This 23 yrs old Male presents to ER via Ambulatory with complaints of Chest Pressure, cp Shortness Of Breath. 18:50 The patient or guardian reports chest pain that is located primarily in the bilateral cp lower chest. The pain does not radiate. Associated signs and symptoms: Pertinent positives: cough, palpitations, shortness of breath, Pertinent negatives: abdominal pain, diaphoresis, headache, lower extremity pain, lower extremity swelling, near syncope, syncope, vomiting. 18:50 The chest pain is described as aching. Duration: The patient or guardian reports a cp single episode, that is still ongoing. Modifying factors: the symptoms are aggravated by deep breath. Historical: - Allergies: 18:54 No Known Allergies; tm6 - PMHx: 18:54 Asthma; tm6 - PSHx: 18:54 None; tm6 - Immunization history:: Flu vaccine is not up to date. - Infectious Disease History:: Denies. - Social history:: Smoking status: Reported history of juuling and/or vaping. Patient uses street drugs, marijuana. ROS: 18:50 Constitutional: Negative for body aches, chills, fever, poor PO intake, cp 18:50 Eyes: Negative for injury, pain, redness, and discharge, cp 18:50 ENT: Positive for sore throat, Negative for ear pain, sinus congestion, sinus pain, difficulty swallowing, difficulty handling secretions, 18:50 Cardiovascular: Positive for chest pain, Negative for edema, palpitations, 18:50 Respiratory: Positive for cough, shortness of breath, 18:50 Abdomen/GI: Negative for abdominal pain, vomiting, diarrhea, constipation, 18:50 Neuro: Negative for altered mental status, dizziness, headache, syncope, near syncope, weakness, 18:50 All other systems are negative, Exam: 18:57 ECG was reviewed by the Attending Physician. cp 18:57 Constitutional: The patient appears in no acute distress, alert, awake, cp non-diaphoretic, non-toxic, well developed, well nourished, 18:57 Head/Face: Normocephalic, atraumatic. cp 18:57 Eyes: Periorbital structures: appear normal, Conjunctiva: normal, no exudate, no injection, Sclera: no appreciated abnormality, Lids and lashes: appear normal, bilaterally, 18:57 ENT: External ear(s): are unremarkable, Ear canal(s): are normal, clear, TM's: dullness, bilaterally, Nose: is normal, Mouth: Lips: moist, Oral mucosa: moist, Posterior pharynx: Airway: no evidence of obstruction, patent, Voice: is normal, 18:57 Neck: ROM/movement: is normal, is supple, without pain, no range of motions limitations, 18:57 Chest/axilla: Inspection: normal, Palpation: is normal, no crepitus, no tenderness, 18:57 Cardiovascular: Rate: normal, Rhythm: regular, 18:57 Respiratory: the patient does not display signs of respiratory distress, Respirations: normal, no use of accessory muscles, no retractions, labored breathing, is not present, Breath sounds: are clear throughout, no decreased breath sounds, no stridor, no wheezing, 18:57 Abdomen/GI: Inspection: abdomen appears normal, Palpation: abdomen is soft and non-tender, in all quadrants, 18:57 Back: pain, is absent, ROM is normal, 18:57 Neuro: Orientation: to person, place \T\ time. Mentation: is normal, Motor: moves all fours, strength is normal, Sensation: is normal, Vital Signs: 18:53 BP 110 / 73; Pulse 78; Resp 19; Temp 98.3(O); Pulse Ox 99% on R/A; MAP 85 mmHg; Weight tm6 99.79 kg; Height 6 ft. 0 in. ; Pain 4/10; 20:30 BP 118 / 62; Pulse 64; Resp 18; Pulse Ox 98% on R/A; kj2 18:53 Body Mass Index 29.84 (99.79 kg, 182.88 cm) tm6 18:53 Pain Scale: Adult tm6 MDM: 18:46 Medical Screening Exam initiated cp 19:30 Differential diagnosis: acute myocardial infarction, acute pericarditis, anxiety, chest cp wall pain, costochondritis, pleurisy, pneumonia, pneumothorax, pulmonary embolus. 21:17 Data reviewed: vital signs, nurses notes, lab test result(s), EKG, radiologic studies, cp plain films. I considered the following discharge prescriptions or medication management in the emergency department Medications were administered in the Emergency Department. See MAR. Independent interpretation of the following test(s) in the Emergency Department EKG: See my EKG interpretation above X-Ray: My interpretation is images of chest negative for focal pneumonia. Counseling: I had a detailed discussion with the patient and/or guardian regarding the historical points, exam findings, and any diagnostic results supporting the discharge/admit diagnosis, lab results, radiology results, to return to the emergency department if symptoms worsen or persist or if there are any questions or concerns that arise at home, smoking cessation. Response to treatment: the patient's symptoms have markedly improved after treatment, and as a result, I will discharge patient. 11/18 19:00 Order name: Basic Metabolic Panel; Complete Time: 20:16 11/18 Interpretation: Normal except: K 3.3; CL 112; CA 8.2. 11/18 19:00 Order name: CBC with Diff; Complete Time: 20:16 11/18 Interpretation: Normal except: HGB 13.3. 11/18 19:00 Order name: LFT's; Complete Time: 20:16 11/18 19:00 Order name: Magnesium; Complete Time: 20:16 11/18 19:00 Order name: Troponin HS; Complete Time: 20:16 11/18 23:35 Interpretation: Reviewed. 11/18 19:00 Order name: Influenza Screen (a \T\ B); Complete Time: 21:33 11/18 19:00 Order name: Strep 11/18 19:00 Order name: SARS RAPID; Complete Time: 21:33 11/18 20:25 Order name: Throat Culture EDAK 11/18 19:48 Order name: XRAY Chest Pa And Lat (2 Views); Complete Time: 21:33 11/18 21:33 Interpretation: Report reviewed. 11/18 19:00 Order name: Cardiac monitoring; Complete Time: 19:49 11/18 19:00 Order name: EKG - Nurse/Tech; Complete Time: 19:49 11/18 19:00 Order name: IV Saline Lock; Complete Time: 19:49 11/18 19:00 Order name: Labs collected and sent; Complete Time: 19:50 cp 11/18 19:00 Order name: O2 Per Protocol; Complete Time: :49 cp 11/18 19:00 Order name: O2 Sat Monitoring; Complete Time: 19:49 cp EC:57 Rate is 73 beats/min. Rhythm is irregular. SD interval is normal. QRS interval is cp normal. QT interval is normal. T waves are Inverted in leads aVR, V3. Interpreted by me. Reviewed by me. Administered Medications: 19:49 Drug: NS 0.9% IV 1000 ml IV at 1000 ml once; to be given as a bolus over 60 minutes hb Route: IV; Rate: 1000 ml; Site: left forearm; 20:49 Follow up: Response: No adverse reaction kj2 21:24 Follow up: IV Status: Completed infusion; IV Intake: 1000ml kj2 19:49 Drug: Albuterol Inhalation 2.5 mg Inhalation once Route: Inhalation; hb 19:49 Drug: Ipratropium Inhalation Aerosol 0.5 mg Inhalation once Route: Inhalation; hb 21:24 Follow up: Response: No adverse reaction kj2 21:24 Follow up: Response: No adverse reaction kj2 19:49 Drug: Ketorolac IVP 15 mg IVP once Route: IVP; Site: right forearm; hb 21:24 Follow up: Response: No adverse reaction kj2 21:32 Drug: MethylPrednisoLONE IVP 125 mg IVP once Route: IVP; Site: right forearm; kj2 21:32 Follow up: Response: Medication administered at discharge. kj2 Disposition Summary: 11/18/24 21:18 Discharge Ordered Notes: Location: Home cp Problem: new cp Symptoms: have improved cp Condition: Stable cp Diagnosis - Pleurisy cp Followup: cp - With: Private Physician - When: 2 - 3 days - Reason: Worsening of condition Discharge Instructions: - Discharge Summary Sheet cp - Pleurisy cp - Form - Return To Work vk Forms: - Medication Reconciliation Form cp - Antibiotic Education cp - Prescription Opioid Use cp - Patient Portal Instructions cp - Leadership Thank You Letter cp - Work release form vk Prescriptions: - Anaprox DS 550 mg Oral Tablet - take 1 tablet ORAL route every 12 hours As needed; 20 tablet; Refills: 0, cp Product Selection Permitted - Medrol (Piero) 4 mg Oral Tablets, Dose Pack - take 1 tablet ORAL route as directed - follow package instructions; 1 packet; cp Refills: 0, Product Selection Permitted Addendum: 11/22/2024 12:42 Co-signature as Attending Physician, Edmond Hickey MD I agree with the assessment and c langston plan of care. Signatures: Dispatcher [employer] [facility] Edmond Hickey MD MD cha Page, Corey, PA PA cp Elyssa Ho, RN RN Karuna Mcintosh RN RN tm6 Yessy Padilla RN RN kj2 Corrections: (The following items were deleted from the chart) 11/18 19:00 19:00 BASIC METABOLIC PANEL+C.LAB.BRZ ordered. EDMS EDMS 19:00 19:00 CBC+H.LAB.BRZ ordered. EDMS EDMS 19:00 19:00 HEPATIC FUNCTION+C.LAB.BRZ ordered. EDMS EDMS 19:00 19:00 MAGNESIUM+C.LAB.BRZ ordered. EDMS EDMS 19:00 19:00 Troponin High Sensitivity+C.LAB.BRZ ordered. EDMS EDMS 19:00 19:00 Influenza Screen (A \T\ B)+BA.LAB.BRZ ordered. EDMS EDMS 19:00 19:00 Group A Streptococcus Rapid Sc+BA.LAB.BRZ ordered. EDMS EDMS 19:00 19:00 SARS-COV-2 Antigen Rapid+I.LAB.BRZ ordered. EDMS EDMS 11/19 16:16 12 18:57 ECG was reviewed by the Attending Physician. cp cp 11/19 16:16 11/17 18:57 Rate is 73 beats/min. Rhythm is irregular. SD interval is normal. QRS cp interval is normal. QT interval is normal. T waves are Inverted in leads aVR, V3. Interpreted by me. Reviewed by me. cp
--- NOTE | 2024-11-18 21:26 | RAD REPORT ---
EXAMINATION: TWO VIEW CHEST XR CLINICAL INDICATION: Cough;SOB;Chest pain TECHNIQUE: 2 views of the chest was performed. COMPARISON: 12/20/2023 FINDINGS: The lungs are well inflated and clear. The heart is upper limit of normal in size. No displaced fract ures evident. IMPRESSION: No acute or significant abnormalities.
[2024-11-18] MEDS ORDERED: METHYLPREDNISOLONE 125 MG INJ ONE (21:31)
[2024-11-18 22:10] VITALS: TEMP 98.3
[2024-11-18 22:12] VITALS: BP 118/62; O2SAT 98
--- NOTE | 2024-11-19 11:08 | EKG ---
Test Date: 2024-11-18 Test Time: 18:51:09 Radio Interference Expert: BP MEASUREMENT RESULTS: Intervals: Rate: 73 HI: 190 QRSD: 100 QT: 414 QTc: 456 [place]: P: 52 HI: 190 QRS: 72 T: 36 INTERPRETIVE STATEMENTS: Sinus rhythm with marked sinus arrhythmia Anterior infarct, age undetermined Abnormal ECG No previous ECG available for comparison Electronically Signed On 11-19-24 11:06:53 QUALITY ASSURANCE NURSE by Ben Falcon
== END 2024-11-18 21:55 | disposition home or self-care (01) ==
LOC: ER 18:34
DX: R09.1 Pleurisy (principal); Z11.52 Encounter for screening for COVID-19
CPT/HCPCS: 96361; 93005; 87070; 85025; 80048; 36415; 83735; 80076; 87081; 84484; 87804 ×2; 71046; 96375; 96374; 99285; 87811; J7613; J7644; J2919; J7030

== ENCOUNTER 2025-02-18 19:16 | Emergency (ER) | payer BC, OTHER ==
[2025-02-18] MEDS ORDERED: dexAMETHasone 10 MG/ML VIAL ONE (19:56)
--- NOTE | 2025-02-18 20:00 | RAD REPORT ---
EXAMINATION: TWO VIEW CHEST XR CLINICAL INDICATION: COUGH TECHNIQUE: 2 views of the chest was performed. COMPARISON: 11/18/2024 FINDINGS: The lungs are well inflated and clear. The heart is normal in size. No displaced fractures evident. IMPRESSION: No acute or significant abnormalities.
[2025-02-18 20:16] LABS: Influenza A Ag Negative; Influenza B Ag Negative; SARS-CoV-2 Antigen Rapid Res Negative (Negative)
--- NOTE | 2025-02-18 20:42 | ER ---
Nurse's Notes [facility] Name: Alban Warren Age: 24 yrs Sex: Male : 2000 Arrival Date: 02/18/2025 Time: 19:16 Bed 26 Private MD: Diagnosis: Acute ethmoidal sinusitis Presentation: 02/18 19:35 Chief complaint: Patient states: PT C/O SNEEZING, STUFFY NOSE RUNNY NOSE AND HAS BEEN br2 TAKING OTC MEDS AND NOTHING IS HELPING. Coronavirus screen: Client denies travel out of the [place] in the last 14 days. Ebola Screen: Patient denies exposure to infectious person. Initial Sepsis Screen: Does the patient meet any 2 criteria? No. Patient's initial sepsis screen is negative. Does the patient have a suspected source of infection? No. Patient's initial sepsis screen is negative. Risk Assessment: Do you want to hurt yourself or someone else? Patient reports no desire to harm self or others. Onset of symptoms was February 14, 2025. 19:35 Method Of Arrival: Ambulatory br2 19:35 Acuity: TAISHA 4 br2 Triage Assessment: 19:39 General: Appears in no apparent distress. uncomfortable, Behavior is calm, cooperative. br2 Pain: Complains of pain in bridge of nose and apex of the nose. EENT: Reports nasal congestion nasal discharge. Respiratory:. Respiratory: Airway is patent Respiratory effort is even, unlabored, Respiratory pattern is regular, symmetrical. Historical: - Allergies: 19:39 No Known Allergies; br2 - PMHx: 19:39 Asthma; br2 - Immunization history:: Adult Immunizations not up to date. - Infectious Disease History:: Denies. - Social history:: Smoking status: Patient/guardian denies using tobacco, Patient/guardian denies using alcohol, street drugs. Screenin:51 [facility] ED Fall Risk Assessment (Adult) History of falling in the last 3 months, jb4 including since admission No falls in past 3 months (0 pts) Confusion or Disorientation No (0 pts) Intoxicated or Sedated No (0 pts) Impaired Gait No (0 pts) Mobility Assist Device Used No (0 pt) Altered Elimination No (0 pt) Score/Fall Risk Level 0 - 2 = Low Risk Oriented to surroundings, Maintained a safe environment. Abuse screen: Denies threats or abuse. Nutritional screening: No deficits noted. Tuberculosis screening: No symptoms or risk factors identified. Assessment: 20:51 Reassessment: Patient appears in no apparent distress at this time. Patient and/or jb4 family updated on plan of care and expected duration. Pain level reassessed. Patient is alert, oriented x 3, equal unlabored respirations, skin warm/dry/pink. Vital Signs: 19:35 BP 120 / 78; Pulse 68; Resp 18; Temp 98.1(O); Pulse Ox 98% on R/A; Weight 99.79 kg; br2 Height 6 ft. 0 in. ; Pain 7/10; 19:35 Body Mass Index 29.84 (99.79 kg, 182.88 cm) br2 19:35 Pain Scale: Adult br2 ED Course: 19:19 Patient arrived in ED. gm2 19:23 [facility]. sb4 19:23 Edmond Hickey MD is Attending Physician. sb4 19:39 Triage completed. br2 19:57 Chest Pa And Lat (2 Views) XRAY In Process Unspecified. EDMS 20:51 Patient has correct armband on for positive identification. Bed in low position. Call jb4 light in reach. Side rails up X 1. Provided Education on: discharge instructions. 20:51 No provider procedures requiring assistance completed. Patient did not have IV access jb4 during this emergency room visit. Administered Medications: 20:11 Drug: Dexamethasone IM 10 mg IM once Route: IM; Site: right deltoid; jb4 20:50 Follow up: Response: No adverse reaction jb4 20:50 Drug: AZITHromycin PO 500 mg PO once Route: PO; jb4 20:50 Follow up: Response: Medication administered at discharge. jb4 Medication: 20:51 VIS not applicable for this client. jb4 Outcome: 20:41 Discharge ordered by MD. sb4 20:51 Discharged to home ambulatory, jb4 20:51 Condition: stable 20:51 Discharge instructions given to patient, Instructed on discharge instructions, follow up and referral plans. no driving heavy equipment, medication usage, Demonstrated understanding of instructions, follow-up care, medications, Prescriptions given X 2, 20:53 Patient left the ED. jb4 Signatures: [facility] Napoleon Adorno RN RN jb4 Leeann Mishra PA-C PA-C sb4 Pamela Olivo gm2 Lillian Rosado, RN RN br2
--- NOTE | 2025-02-18 20:42 | EDPHYS ---
Physician Documentation [facility] Name: Alban Warren Age: 24 yrs Sex: Male : 2000 Arrival Date: 02/18/2025 Time: 19:16 Bed 26 Private MD: ED Physician Edmond Hickey HPI: 02/18 19:53 This 24 yrs old Male presents to ER via Ambulatory with complaints of Cough, Congestion.sb4 19:53 Patient reports sneezing, runny nose, sinus congestion/pain x 3 days. States he has sb4 been taking [id number] allergy medication without improvement in symptoms. States that his family members are sick with similar symptoms. Denies any GI symptoms. Denies any chest pain or shortness of breath. Historical: - Allergies: 19:39 No Known Allergies; br2 - PMHx: 19:39 Asthma; br2 - Immunization history:: Adult Immunizations not up to date. - Infectious Disease History:: Denies. - Social history:: Smoking status: Patient/guardian denies using tobacco, Patient/guardian denies using alcohol, street drugs. ROS: 19:53 Constitutional: Negative for fever, chills, and weight loss, sb4 19:53 ENT: Positive for nasal discharge, sinus congestion, sinus pain, 19:53 Respiratory: Positive for cough, with green sputum, 19:53 Allergy/Immunology: Positive for allergies, Exam: 19:53 Head/Face: Normocephalic, atraumatic. Eyes: Extra-ocular motions intact. Periorbital sb4 areas with no swelling, redness, or edema. ENT: Mucous membranes moist. Cardiovascular: Regular rate and rhythm with a normal S1 and S2. Respiratory: No increased work of breathing, no retractions or nasal flaring. Abdomen/GI: Soft, non-tender, no distension. Skin: Warm, dry with normal turgor. Normal color with no rashes, no lesions, and no evidence of cellulitis. 19:53 Constitutional: The patient appears alert, awake, obviously ill, 19:53 Special observations: Smells of marijuana, 20:41 ENT: Ear canal(s): erythema, swelling, that is moderate, bilaterally, TM's: scarring, sb4 Nose: Turbinates: are swollen bilaterally, 20:41 Head/face: Sinus tenderness, that is moderate, is located over the right ethmoid sinus sb4 and left ethmoid sinus, Vital Signs: 19:35 BP 120 / 78; Pulse 68; Resp 18; Temp 98.1(O); Pulse Ox 98% on R/A; Weight 99.79 kg; br2 Height 6 ft. 0 in. ; Pain 7/10; 19:35 Body Mass Index 29.84 (99.79 kg, 182.88 cm) br2 19:35 Pain Scale: Adult br2 MDM: 19:23 Medical Screening Exam initiated sb4 20:45 Differential Diagnosis: Bronchitis Influenza Upper Respiratory Infection Sinusitis. sb4 Data reviewed: vital signs, nurses notes, lab test result(s), radiologic studies, and as a result, I will discharge patient. Historians other than the Patient: Spouse/Significant Other: significant other. Counseling: I had a detailed discussion with the patient and/or guardian regarding the historical points, exam findings, and any diagnostic results supporting the discharge/admit diagnosis, lab results, radiology results, the need for outpatient follow up, for definitive care, to return to the emergency department if symptoms worsen or persist or if there are any questions or concerns that arise at home. 02/18 19:30 Order name: COVID-19 Ag + Flu A+B Ag; Complete Time: 20:17 sb4 02/18 19:30 Order name: Group A Streptococcus Rapid; Complete Time: 20:32 sb4 02/18 20:34 Order name: Throat Culture EDDE 02/18 19:30 Order name: Chest Pa And Lat (2 Views) XRAY; Complete Time: 20:02 sb4 Administered Medications: 20:11 Drug: Dexamethasone IM 10 mg IM once Route: IM; Site: right deltoid; jb4 20:50 Follow up: Response: No adverse reaction jb4 20:50 Drug: AZITHromycin PO 500 mg PO once Route: PO; jb4 20:50 Follow up: Response: Medication administered at discharge. jb4 Disposition Summary: 02/18/25 20:41 Discharge Ordered Notes: Location: Home sb4 Problem: new sb4 Symptoms: have improved sb4 Condition: Stable sb4 Diagnosis - Acute ethmoidal sinusitis sb4 Followup: sb4 - With: Private Physician - When: 1 week - Reason: Recheck today's complaints, Re-evaluation by your physician Discharge Instructions: - Discharge Summary Sheet sb4 - Sinusitis, Adult, Bahf-co-Mahn sb4 - How to Perform a Sinus Rinse, [id number] sb4 Forms: - Antibiotic Education sb4 - Patient Portal Instructions sb4 - Leadership Thank You Letter sb4 Prescriptions: - azithromycin 250 mg Oral tablet - take 1 tablet ORAL route daily for 4 days; 4 tablet; Refills: 0, Product sb4 Selection Permitted - Prednisone 20 mg Oral Tablet - take 1 tablet ORAL route once daily for 5 days; 5 tablet; Refills: 0, Product sb4 Selection Permitted Addendum: 02/20/2025 15:31 Co-signature as Attending Physician, Edmond Hickey MD I agree with the assessment and c langston plan of care. Signatures: Dispatcher [employer] EDEdmond Oh MD MD cha Bryson, James, RN RN jb4 Leeann Mishra, PA-C PA-C sb4 Lillian Rosado, RN RN br2 Corrections: (The following items were deleted from the chart) 02/18 19:30 19:30 Chest Pa And Lat (2 Views)+[email or web address] ordered. [facility]
[2025-02-18] MEDS ORDERED: AZITHROMYCIN 250 MG TAB ONE (20:46)
[2025-02-18 20:59] VITALS: BP 120/78; TEMP 98.1; O2SAT 98
== END 2025-02-18 20:53 | disposition home or self-care (01) ==
LOC: ER 19:16
DX: J01.20 Acute ethmoidal sinusitis, unspecified (principal); Z11.52 Encounter for screening for COVID-19
CPT/HCPCS: 87070; 36415; 71046; 96372; 99284; 87428; J1100